=== PATIENT | female | born 1975 | race Caucasian/White ===

== ENCOUNTER 2017-07-07 18:03 | Emergency (ER) | payer OTHER ==
[2017-07-07 18:14] VITALS: BP 163/74; BMI 40.1
[2017-07-07] MEDS ORDERED: TORADOL 60 MG VIAL IM ONE (18:58)
[2017-07-07] MEDS ORDERED: TORADOL 60 MG VIAL ONE (19:00)
[2017-07-07 19:19] LABS: BASOPHILS # (AUTO) 0.1 X10^3/uL (0.0-0.1); BASOPHILS % (AUTO) 0.6 % (0.2-1.0); EOSINOPHILS # (AUTO) 0.2 x10^3/uL (0.0-0.2); EOSINOPHILS % (AUTO) 1.4 % (0.9-2.9); HEMATOCRIT 41.3 % (36.0-47.0); LYMPHOCYTES % (AUTO) 15.3 % (21.0-51.0); MEAN CORPUSCULAR HEMOGLOBIN 30.5 pg (27.0-34.0); MEAN CORPUSCULAR VOLUME 89.7 fL (80.0-100.0); MEAN PLATELET VOLUME 9.9 fL (7.4-11.0); MONOCYTES % (AUTO) 7.4 % (0.0-13.0); NEUTROPHILS # (AUTO) 9.8 x10^3/uL (2.2-4.8); NEUTROPHILS % (AUTO) 75.3 % (42.0-75.0); PLATELET COUNT 190 X10^3/uL (150.0-450.0); RED CELL DISTRIBUTION WIDTH 14.2 % (11.6-16.5)
--- NOTE | 2017-07-07 19:30 | DR.GENAD ---
HPI - PCP Primary Care Physician: SPENCER NEGRO-C - Complaint/Symptoms Chief Complaint:: PT STATES THAT YESTERDAY HAD A SUDDEN ONSET OF PAIN INTO HER LEFT FOOT. NOTICED SHE HAD A SMALL WOUND TO BACK OF HEEL. TODAY THE AREA HAS REDNESS AND SEVERE PAIN TO THE POINT SHE IS UNABLE TO PUT WEIGHT ON FOOT. STATES THAT THE PAIN IS SHOOTING UP HER LEG. Self Treatment fo Chief Complaint: GABAPENTIN AND HYDROCODONE WITH NO RELIEF - Source History Provided: Patient - Mode of Arrival Mode of Arrival: Ambulatory - Timing Onset of Chief Complaint: 07/07/17 PMH - PMH Past Medical History: Yes Past Medical History: Depression, Diabetes, Dyslipidemia, Hypertension Past Medical History Comment: NEUROPATHY Past Surgical History: Yes Surgical History: , Cholecystectomy, Hysterectomy, Tonsillectomy Past Surgical History Comment: BILATERAL HIP SURGERY, BILATERAL EAR SURGERY, RIGHT GREAT TOE SURGERY - Family History History of Family Medical Conditions: Yes Family Medical History: Diabetes Mellitus, DC, Hypertension - Social History Does patient currently use any type of tobacco product: Yes Have you used tobacco products in the last 12 months: Yes Type of Tobacco Use: Cigarettes Does any household member use tobacco: Yes Alcohol Use: None, Rarely Do you use any recreational Drugs:: No Lives With: Significant Other Lives Where: Home - infectious screening In the last 2 months have you had wt loss of >10#?: NO Have you had fever, night sweats or hemotysis?: No Have you traveled outside the country in the last 6 months?: No Isolation: Standard PE - Vital Signs Vitals: Temperature 97.2 F Pulse Rate 101 Respiratory Rate 18 Blood Pressure 163/74 O2 Sat by Pulse Oximetry 98 ROR - Labs Reviewed Result Diagrams: 07/07/17 19:05 Laboratory: WBC 13.0 X10^3/uL (3.6-10.0) H 07/07/17 19:05 RBC 4.60 X10^6/uL (3.5-5.4) 07/07/17 19:05 Hgb 14.0 g/dL (12.0-16.0) 07/07/17 19:05 Hct 41.3 % (36.0-47.0) 07/07/17 19:05 MCV 89.7 fL (80.0-100.0) 07/07/17 19:05 MCH 30.5 pg (27.0-34.0) 07/07/17 19:05 MCHC 34.0 g/dL (33.0-35.0) 07/07/17 19:05 RDW 14.2 % (11.6-16.5) 07/07/17 19:05 Plt Count 190 X10^3/uL (150.0-450.0) 07/07/17 19:05 MPV 9.9 fL (7.4-11.0) 07/07/17 19:05 Neut % (Auto) 75.3 % (42.0-75.0) H 07/07/17 19:05 Lymph % (Auto) 15.3 % (21.0-51.0) L 07/07/17 19:05 Hitchcock % (Auto) 7.4 % (0.0-13.0) 07/07/17 19:05 Eos % (Auto) 1.4 % (0.9-2.9) 07/07/17 19:05 Baso % (Auto) 0.6 % (0.2-1.0) 07/07/17 19:05 Neut # (Auto) 9.8 x10^3/uL (2.2-4.8) H 07/07/17 19:05 Lymph # (Auto) 2.0 X10^3/uL (1.3-2.9) 07/07/17 19:05 Hitchcock # (Auto) 1.0 x10^3/uL (0.3-0.8) H 07/07/17 19:05 Eos # (Auto) 0.2 x10^3/uL (0.0-0.2) 07/07/17 19:05 Baso # (Auto) 0.1 X10^3/uL (0.0-0.1) 07/07/17 19:05 Absolute Nucleated RBC 0.1 /100WBC 07/07/17 19:05 C-Reactive Protein 40.20 mg/L (0-3.0) H 07/07/17 19:05 - Diagnosis Discharge Problem: Cellulitis of foot, left - Discharge Plan Condition: Stable Prescriptions: Acetaminophen/Codeine Tab [TYLENOL w/CODEINE #3 (300 MG/30 MG) *] 1 tab PO Q4- 6H PRN #15 tab PRN Reason: Pain Sulfamethoxazole-Trimethoprim [BACTRIM DS TAB 800/160 MG *] 1 tab PO BID #20 tab - Follow ups/Referrals Follow ups/Referrals: KASANDRA MARIEE [Primary Care Provider] - 3 days - Instructions
[2017-07-07] MEDS ORDERED: ROCEPHIN VIAL 1 GM IM ONE (19:31)
[2017-07-07] MEDS ORDERED: XYLOCAINE 1 % (PLAIN) ONE (19:35)
[2017-07-07] MEDS ORDERED: ROCEPHIN VIAL 1 GM ONE (19:36)
== END 2017-07-07 19:55 | disposition home or self-care (01) ==
LOC: ER 18:15
DX: L03.116 Cellulitis of left lower limb (principal); R79.82 Elevated C-reactive protein (CRP)
CPT/HCPCS: 36415; 85025; 86140; 96372; 99282; J0696; J1885; J2001